=== PATIENT | female | born 1960 | race Caucasian/White ===

== ENCOUNTER 2018-11-15 13:58 | Outpatient (REF) | payer BC, SELFPAY ==
--- NOTE | 2018-11-15 13:30 | PAPFT_PTH ---
PATIENT: PEE MONAE LOC: [facility] U#:[id number] AGE/SX: 58/F ROOM: RE11/15/[address]: Mya Daniels : 1960 BED: DIS: 11/15/2018 SPEC #: [id number] RECD: 11/16/18 13:00 STATUS: LURDES DIGGS #: [id number] SHAMEKA: 11/15/18 13:[address]: Mya Mueller DEPT: [facility] Cytology RECD BY: Vicki Sanches ENTERED: 11/16/18 13:00 SP TYPE: PAPFT OTHR DR: Noa Gonsalez Tissues: 1 - CX/ENDOCX FOR PAP SMEARS Procedures: PAP THIN PREP/[facility] Screening HPV DNA PROBE Comments: [id number]
[2018-11-15 21:52] LABS: Absolute Basophil Count 0.03 k/cumm (0.0-0.2); Absolute Eosinophil Count 0.27 k/cumm (0.0-0.7); Absolute Lymphocyte Count 0.65 k/cumm (1.2-3.4); Absolute Monocyte Count 0.37 k/cumm (0.11-0.7); Absolute Neutrophil Count 3.32 k/cumm (1.2-6.7); Basophils % 0.6; Eosinophils % 5.8; HCT 38.5 % (36.0-46.0); HGB 12.7 g/dL (12.0-15.5); Mean Corpuscular Hemoglobin 31.2 pg (27.0-33.0); Mean Corpuscular Volume 94.6 fL (80-95); Mean Platelet Volume 10.1 fL (8.0-11.0); Neutrophils % 71.6; Platelet Count 260 x1000/uL (130-400); RBC 4.07 m/cumm (4.00-5.20); RBC Distribution Width 11.9 % (11.7-14.6); White Blood Cell Count 4.64 k/cumm (4.4-10.8)
[2018-11-15 22:18] LABS: ALT 23 U/L (12-78); AST 17 U/L (15-37); Alkaline Phosphatase 87 U/L (46-116); Anion Gap 10.5 mmol/L (3-11); BUN 16 mg/dL (7-18); Bilirubin, Total 0.3 mg/dL (0.2-1.0); CO2 24.5 mmol/L (21.0-32.0); CREATININE 0.68 mg/dL (0.55-1.02); Calcium 9.1 mg/dL (8.5-10.1); Chloride 105 mmol/L (98-107); Glucose 104 mg/dL (70-100); Potassium 3.9 mmol/L (3.5-5.1); Sodium 140 mmol/L (136-145); TSH 2.72 uIU/mL (0.358-3.74)
== END 2018-11-15 14:18 ==
LOC: NCHCN 13:58
PROVIDERS: PCP Nurse Practitioner Family; Visit Provider Nurse Practitioner Family
DX: R19.7 Diarrhea, unspecified (principal); Z12.4 Encounter for screening for malignant neoplasm of cervix; Z11.51 Encounter for screening for human papillomavirus (HPV)
CPT/HCPCS: 80053; 88142; 84443; 85025; 87624

== ENCOUNTER 2018-11-16 11:34 | Outpatient (REF) | payer BC, SELFPAY ==
[2018-11-18 12:59] LABS: Campylobacter PCR SEE COMMENTS; Salmonella PCR SEE COMMENTS; Shiga Toxin PCR SEE COMMENTS; Shigella/Enteroinvasive Ecoli SEE COMMENTS
== END 2018-11-16 11:54 ==
LOC: NCHCN 11:34
PROVIDERS: PCP Nurse Practitioner Family; Visit Provider Nurse Practitioner Family
DX: R19.7 Diarrhea, unspecified (principal)
CPT/HCPCS: 87329; 87505; 83630; 87177; 87324